=== PATIENT | female | born 1975 | race Caucasian/White ===

== ENCOUNTER 2019-12-07 08:59 | Emergency (ER) | payer OTHER ==
[2019-12-07] MEDS ORDERED: LIDOCAINE VISCOUS 2% SOLN 15 ML UDC ONE (10:07)
[2019-12-07] MEDS ORDERED: MAGNE/ALUM HYDROXD 30 ML UCUP ONE (10:07)
[2019-12-07 10:11] LABS: Urine Blood 2+ (NEG); Urine Glucose NEGATIVE (NEG); Urine Protein NEGATIVE (NEG); Urine pH 8.5 (5.0-7.0)
[2019-12-07 10:21] LABS: Absolute Lymphocytes (CBC) 0.9 K/uL (0.7-4.9); Basophils % 0.9 % (0-1.3); Hematocrit 41.4 % (36.0-45.0); Lymphocytes % 9.5 % (15.3-44.8); MPV 9.2 fL (7.6-11.3); RBC Red Blood Cell Count 4.82 M/uL (3.86-4.86)
[2019-12-07 10:23] LABS: Protime INR 0.99
--- NOTE | 2019-12-07 10:33 | RAD REPORT ---
EXAM DESCRIPTION: [place] Single View12/07/2019 10:26 am CLINICAL HISTORY: Chest pain COMPARISON: none FINDINGS: The lungs appear clear of acute infiltrate. The heart is normal size IMPRESSION: No acute abnormalities displayed
[2019-12-07 10:39] LABS: ALT/SGPT 21 U/L (12-78); AST/SGOT 15 U/L (15-37); Albumin 3.6 g/dL (3.4-5.0); Alkaline Phosphatase 97 U/L (45-117); BUN Blood Urea Nitrogen 11 mg/dL (7-18); Bicarbonate 28 mmol/L (21-32); Bilirubin Direct 0.2 mg/dL (0-0.2); Bilirubin Total 0.5 mg/dL (0.2-1.0); Glucose Level 94 mg/dL (74-106); Lipase 57 U/L (73-393); Magnesium 1.8 mg/dL (1.8-2.4); NT PRO-BNP 86 pg/mL (<125); Potassium 3.6 mmol/L (3.5-5.1); Protein, Total 7.3 g/dL (6.4-8.2); Sodium Level 136 mmol/L (136-145); Troponin (Emerg Dept Use Only) < 0.02 ng/mL (0.0-0.045)
--- NOTE | 2019-12-07 11:37 | ER ---
Nurse's Notes [facility] Name: Jessica Nathan Age: 44 yrs Sex: Female : 1975 Arrival Date: 12/07/2019 Time: 09:00 Bed 2 Private MD: Diagnosis: Cholelithiasis;Upper abdominal pain, unspecified Presentation: 12/06 09:09 Chief complaint: Patient states: epigastric pain that began this morning. Pt denies aa5 nausea/vomiting/diarrhea. Coronavirus screen: Client denies travel out of the [place] in the last 14 days. At this time, the client does not indicate any symptoms associated with coronavirus-19. Ebola Screen: Patient negative for fever greater than or equal to 101.5 degrees Fahrenheit, and additional compatible Ebola Virus Disease symptoms. Initial Sepsis Screen: Does the patient meet any 2 criteria? No. Patient's initial sepsis screen is negative. Does the patient have a suspected source of infection? No. Patient's initial sepsis screen is negative. Risk Assessment: Do you want to hurt yourself or someone else? Patient reports no desire to harm self or others. Onset of symptoms was November 2019. 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 - Social history:: Smoking status: Patient reports the use of cigarette tobacco products, denies chronic smoking, but will smoke occasionally. Screenin:16 Abuse screen: Denies threats or abuse. Nutritional screening: No deficits noted. tw2 Tuberculosis screening: No symptoms or risk factors identified. Fall Risk None identified. Assessment: 09:16 Reassessment: pt given urine specimen cup at this time and taken to the restroom. tw2 09:27 General: Appears in no apparent distress. uncomfortable, well groomed, Behavior is tw2 calm, cooperative, appropriate for age. 09:27 Pain: Complains of pain in epigastric area. Neuro: Level of Consciousness is awake, tw2 alert, obeys commands, Oriented to person, place, time, situation. Cardiovascular: Heart tones S1 S2 Capillary refill < 3 seconds Patient's skin is warm and dry. Respiratory: Airway is patent Respiratory effort is even, unlabored, Respiratory pattern is regular, symmetrical, Breath sounds are clear bilaterally. GI: Abdomen is flat, Bowel sounds present X 4 quads. Abd is soft X 4 quads Reports epigastric pain. : No signs and/or symptoms were reported regarding the genitourinary system. EENT: No signs and/or symptoms were reported regarding the EENT system. Derm: No signs and/or symptoms reported regarding the dermatologic system. Musculoskeletal: Range of motion: intact in all extremities. 10:10 Reassessment: xray at bedside at this time. tw2 11:33 Reassessment: No changes from previously documented assessment. Patient and/or family tw2 updated on plan of care and expected duration. Pain level reassessed. Patient is alert, oriented x 3, equal unlabored respirations, skin warm/dry/pink. provider notified, medicated as ordered Patient states symptoms have not improved. 11:39 Reassessment: provider at bedside at this time with results. tw2 11:55 Reassessment: Patient appears in no apparent distress at this time. Patient and/or tw2 family updated on plan of care and expected duration. Pain level reassessed. Patient is alert, oriented x 3, equal unlabored respirations, skin warm/dry/pink. Patient states feeling better. Patient states symptoms have improved. Vital Signs: 09:11 BP 164 / 91; Pulse 80; Resp 20 S; Temp 97.9(O); Pulse Ox 100% on R/A; Weight 77.11 kg aa5 (R); Height 5 ft. 5 in. (165.10 cm) (R); Pain 8/10; 10:12 BP 146 / 98; Pulse 77; Resp 17; Pulse Ox 100% on R/A; tw2 11:10 BP 163 / 99; Pulse 70; Resp 17; Pulse Ox 100% on R/A; tw2 11:25 Pain 8/10; tw2 11:50 BP 138 / 86; Pulse 89; Resp 16; Pulse Ox 100% on R/A; tw2 09:11 Body Mass Index 28.29 (77.11 kg, 165.10 cm) aa5 ED Course: 09:00 Patient arrived in ED. ag5 09:09 Triage completed. aa5 09:09 Arm band placed on. aa5 09:13 Bed in low position. Call light in reach. Pulse ox on. NIBP on. tw2 09:15 Justino Frost RN is Primary Nurse. jl7 09:16 Thee Mcconnell PA is PHCP. jr8 09:16 Endy Galan MD is Attending Physician. jr8 10:02 Inserted saline lock: 20 gauge in right antecubital area, using aseptic technique. tw2 Blood collected. 10:27 XRAY Chest (1 view) In Process Unspecified. EDMS 10:33 EKG done, by agronomy technician. reviewed by Thee CARLSON. at1 11:08 US Abdomen Limited In Process Unspecified. EDMS 11:33 Sukumar Callahan MD is Referral Physician. jr8 11:55 No provider procedures requiring assistance completed. IV discontinued, intact, tw2 bleeding controlled, No redness/swelling at site. Pressure dressing applied. Administered Medications: 10:00 Drug: GI Cocktail without - (Maalox Suspension 30 ml, Lidocaine Liquid 2 % 15 tw2 ml) Route: PO; 11:25 Follow up: Pain 8/10 Adult; Response: No adverse reaction; Pain is unchanged, physician tw2 notified 11:30 Drug: Zofran (Ondansetron) 4 mg Route: IVP; Site: right antecubital; tw2 11:55 Follow up: Response: No adverse reaction tw2 11:32 Drug: Demerol 25 mg {Note: RASS 0.} Route: IVP; Site: right antecubital; tw2 11:55 Follow up: Response: No adverse reaction; Pain is decreased; RASS: Alert and Calm (0) tw2 Outcome: 11:36 Discharge ordered by . jr8 11:55 Discharged to home ambulatory, with significant other. tw2 11:55 Condition: stable 11:55 Discharge instructions given to patient, significant other, Instructed on discharge instructions, follow up and referral plans. no drinking with medication, no driving heavy equipment, medication usage, Demonstrated understanding of instructions, follow-up care, medications, Prescriptions given X 2. 11:57 Patient left the ED. tw2 Signatures: Dispatcher [employer] EDAmberly Madsen, RN RN aa5 Thee Mcconnell PA PA jr8 Shireen Hidalgo, assistant professor of radiology EKG Tat1 Sarah Dawn RN RN tw2 Justino Frost RN RN jl7 Germaine Saavedra 5
--- NOTE | 2019-12-07 11:37 | EDPHYS ---
Physician Documentation [facility] Name: Jessica Nathan Age: 44 yrs Sex: Female : 1975 Arrival Date: 12/07/2019 Time: 09:00 Bed 2 Private MD: ED Physician Endy Galan HPI: 12/06 10:12 This 44 yrs old Female presents to ER via Ambulatory with complaints of Abdominal Pain. jr8 10:12 The patient presents with abdominal pain in the epigastric area, in the upper abdomen. jr8 Onset: The symptoms/episode began/occurred acutely, this morning. The symptoms do not radiate. Associated signs and symptoms: none. The symptoms are described as dull. Modifying factors: The symptoms are alleviated by nothing, the symptoms are aggravated by nothing. Severity of pain: At its worst the pain was moderate in the emergency department the pain is unchanged. The patient has not experienced similar symptoms in the past. The patient has not recently seen a physician. Patient stated that she on a very rare occasion will have reflux and can usually take something and it goes away. Stated that at about 1:30 AM this morning woke up with reflux sensation. Took Pepto-Bismol without relief. Waited a while and took milk of magnesia and also Prevacid. Stated that she waited another hour in a half and still without relief. [place] that the burning of esophagus migrated down to epigastric region and since then has staid there . 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 - Social history:: Smoking status: Patient reports the use of cigarette tobacco products, denies chronic smoking, but will smoke occasionally. ROS: 10:12 Eyes: Negative for injury, pain, redness, and discharge, ENT: Negative for injury, jr8 pain, and discharge, Neck: Negative for injury, pain, and swelling, Cardiovascular: Negative for chest pain, palpitations, and edema, Respiratory: Negative for shortness of breath, cough, wheezing, and pleuritic chest pain, Back: Negative for injury and pain, MS/Extremity: Negative for injury and deformity, Skin: Negative for injury, rash, and discoloration, Neuro: Negative for headache, weakness, numbness, tingling, and seizure. 10:12 Abdomen/GI: Positive for abdominal pain, Negative for nausea, vomiting, and diarrhea, abdominal cramps, abdominal distension, hematemesis, black/tarry stool, rectal pain, rectal bleeding, bowel incontinence, flatulence. Exam: 10:12 Eyes: Pupils equal round and reactive to light, extra-ocular motions intact. Lids and jr8 lashes normal. Conjunctiva and sclera are non-icteric and not injected. Cornea within normal limits. Periorbital areas with no swelling, redness, or edema. ENT: Nares patent. No nasal discharge, no septal abnormalities noted. Tympanic membranes are normal and external auditory canals are clear. Oropharynx with no redness, swelling, or masses, exudates, or evidence of obstruction, uvula midline. Mucous membranes moist. Neck: Trachea midline, no thyromegaly or masses palpated, and no cervical lymphadenopathy. Supple, full range of motion without nuchal rigidity, or vertebral point tenderness. No Meningismus. Cardiovascular: Regular rate and rhythm with a normal S1 and S2. No gallops, murmurs, or rubs. Normal PMI, no JVD. No pulse deficits. Respiratory: Lungs have equal breath sounds bilaterally, clear to auscultation and percussion. No rales, rhonchi or wheezes noted. No increased work of breathing, no retractions or nasal flaring. Back: No spinal tenderness. No costovertebral tenderness. Full range of motion. Skin: Warm, dry with normal turgor. Normal color with no rashes, no lesions, and no evidence of cellulitis. MS/ Extremity: Pulses equal, no cyanosis. Neurovascular intact. Full, normal range of motion. Neuro: Awake and alert, GCS 15, oriented to person, place, time, and situation. Cranial nerves II-XII grossly intact. Motor strength 5/5 in all extremities. Sensory grossly intact. Cerebellar exam normal. Normal gait. 10:12 Abdomen/GI: Inspection: abdomen appears normal, Bowel sounds: active, all quadrants, Palpation: soft, in all quadrants, mild abdominal tenderness, in the epigastric area and left upper quadrant, moderate abdominal tenderness, in the right upper quadrant, mass, is not appreciated, rebound tenderness, is not appreciated, voluntary guarding, is not appreciated, involuntary guarding, is not appreciated, no appreciated organomegaly, Indicators: McBurney's point is not tender, Curry's sign is negative, Rovsing's sign is negative, Liver: tenderness, is not appreciated. Vital Signs: 09:11 BP 164 / 91; Pulse 80; Resp 20 S; Temp 97.9(O); Pulse Ox 100% on R/A; Weight 77.11 kg aa5 (R); Height 5 ft. 5 in. (165.10 cm) (R); Pain 8/10; 10:12 BP 146 / 98; Pulse 77; Resp 17; Pulse Ox 100% on R/A; tw2 11:10 BP 163 / 99; Pulse 70; Resp 17; Pulse Ox 100% on R/A; tw2 11:25 Pain 8/10; tw2 11:50 BP 138 / 86; Pulse 89; Resp 16; Pulse Ox 100% on R/A; tw2 09:11 Body Mass Index 28.29 (77.11 kg, 165.10 cm) aa5 MDM: 09:16 Patient medically screened. abby 09:18 Patient medically screened. abby 11:32 Differential diagnosis: AAA, cholecystitis, Cholelithiasis, diverticulitis, gastritis, jr8 gastroesophageal reflux disease, myocardia ischemia or infarction, non-specific abd pain, pancreatitis, Peptic Ulcer Disease, Perf. Duodenal Ulcer, Perf. Gastric Ulcer, Peritonitis. Data reviewed: vital signs, nurses notes, lab test result(s), EKG, radiologic studies, plain films, ultrasound. Data interpreted: Pulse oximetry: on room air is 100 %. Interpretation: normal. Counseling: I had a detailed discussion with the patient and/or guardian regarding: the historical points, exam findings, and any diagnostic results supporting the discharge/admit diagnosis, lab results, radiology results, the need for outpatient follow up, a general surgeon, to return to the emergency department if symptoms worsen or persist or if there are any questions or concerns that arise at home. Response to treatment: the patient's symptoms have markedly improved after treatment. 10 09:47 Order name: Urine Dipstick--Ancillary (enter results); Complete Time: 10:16 bd 12/06 09:47 Order name: Urine --Ancillary (enter results); Complete Time: 10:16 bd 12/06 09:49 Order name: Basic Metabolic Panel; Complete Time: 10:45 12/06 09:49 Order name: CBC with Diff; Complete Time: 10:37 12/06 09:49 Order name: LFT's; Complete Time: 10:45 12/06 09:49 Order name: Magnesium; Complete Time: 10:45 12/06 09:49 Order name: NT PRO-BNP; Complete Time: 10:45 12/06 09:49 Order name: PT-INR; Complete Time: 10:37 12/06 09:49 Order name: Troponin (emerg Dept Use Only); Complete Time: 10:45 12/06 09:49 Order name: XRAY Chest (1 view); Complete Time: 10:37 12/06 09:49 Order name: Lipase; Complete Time: 10:45 12/06 10:37 Order name: US Abdomen Limited; Complete Time: 11:51 12/06 09:26 Order name: Urine Dipstick-Ancillary (obtain specimen); Complete Time: 09:26 tw12/06 09:26 Order name: Urine Test (obtain specimen); Complete Time: 09:26 tw2 12/06 09:49 Order name: EKG; Complete Time: 09:50 12/06 09:49 Order name: Cardiac monitoring; Complete Time: 10:09 12/06 09:49 Order name: EKG - Nurse/Tech; Complete Time: 11:24 12/06 09:49 Order name: IV Saline Lock; Complete Time: 10:12/06 09:49 Order name: Labs collected and sent; Complete Time: 10:12/06 09:49 Order name: O2 Per Protocol; Complete Time: 10:12/06 09:49 Order name: O2 Sat Monitoring; Complete Time: 10: Administered Medications: 10:00 Drug: GI Cocktail without - (Maalox Suspension 30 ml, Lidocaine Liquid 2 % 15 tw2 ml) Route: PO; 11:25 Follow up: Pain 8/10 Adult; Response: No adverse reaction; Pain is unchanged, physician tw2 notified 11:30 Drug: Zofran (Ondansetron) 4 mg Route: IVP; Site: right antecubital; tw2 11:55 Follow up: Response: No adverse reaction tw2 11:32 Drug: Demerol 25 mg {Note: RASS 0.} Route: IVP; Site: right antecubital; tw2 11:55 Follow up: Response: No adverse reaction; Pain is decreased; RASS: Alert and Calm (0) tw2 Disposition: 15:06 Co-signature as Attending Physician, Endy Galan MD I agree with the assessment and abby plan of care. Disposition: 12/07/19 11:36 Discharged to Home. Impression: Cholelithiasis, Upper abdominal pain, unspecified. - Condition is Stable. - Discharge Instructions: Abdominal Pain, Adult, Biliary Colic, Adult, Clear Liquid Diet, Adult, Cholelithiasis. - Prescriptions for Tylenol- Codeine #3 300-30 mg Oral Tablet - take 2 tablets by ORAL route every 6 hours As needed; 20 tablet. Zofran 4 mg Oral Tablet - take 1 tablet by ORAL route every 12 hours As needed; 20 tablet. - Medication Reconciliation Form, Thank You Letter, Antibiotic Education, Prescription Opioid Use, Work release form, Family Work Release form. - Follow up: Sukumar Callahan MD; When: 2 - 3 days; Reason: Recheck today's complaints, Continuance of care, Re-evaluation by your physician. - Problem is new. - Symptoms have improved. Signatures: Dispatcher [employer] Endy Regan MD MD cha Calderon, Audri, RN RN aa5 Thee Mcconnell PA PA jr8 Sarah Dawn, RN RN tw2 Corrections: (The following items were deleted from the chart) 11:57 11:36 12/07/2019 11:36 Discharged to Home. Impression: Cholelithiasis; Upper abdominal tw2 pain, unspecified. Condition is Stable. Forms are Medication Reconciliation Form, Thank You Letter, Antibiotic Education, Prescription Opioid Use. Follow up: Sukumar Callahan; When: 2 - 3 days; Reason: Recheck today's complaints, Continuance of care, Re-evaluation by your physician. Problem is new. Symptoms have improved. jr8
[2019-12-07] MEDS ORDERED: MEPERIDINE HCL 50 MG/ML ONE (11:39)
[2019-12-07] MEDS ORDERED: ONDANSETRON 4 MG/2 ML VIAL ONE (11:39)
--- NOTE | 2019-12-07 11:40 | RAD REPORT ---
EXAM DESCRIPTION: US - Abdomen Exam Limited - 12/07/2019 11:08 am CLINICAL HISTORY: Abdominal pain. COMPARISON: None. FINDINGS: Multiple gallstones. Gallbladder wall is not thickened The biliary tree is normal caliber. IMPRESSION: Cholelithiasis without evidence cholecystitis
[2019-12-07 12:08] VITALS: TEMP 97.9; O2SAT 100
[2019-12-07 12:25] VITALS: BP 138/86
== END 2019-12-07 11:57 | disposition home or self-care (01) ==
LOC: ER 08:59
DX: K80.20 Calculus of gallbladder without cholecystitis without obstruction (principal); F17.210 Nicotine dependence, cigarettes, uncomplicated; I10 Essential (primary) hypertension; Z88.6 Allergy status to analgesic agent
CPT/HCPCS: 93005; 85025; 80048; 36415; 83735; 81025; 85610; 80076; 81003; 84484; 83690; 83880; 71045; 76705; 96375; 96374; 99284; J2175; J2405

== ENCOUNTER 2019-12-21 07:54 | Day surgery (SDC) | payer OTHER ==
[2019-12-21 08:20] LABS: Specific Gravity 1.015 (1.005-1.030)
[2019-12-21 08:38] LABS: Albumin 3.3 g/dL (3.4-5.0); Bilirubin Direct 0.1 mg/dL (0-0.2); Bilirubin Total 0.4 mg/dL (0.2-1.0)
[2019-12-21] MEDS ORDERED: Ringers Lactate 1,000 ML IV ONE ×2 (08:40→10:30)
[2019-12-21] MEDS: CEFOXITIN/SWI 1gm 1 GM/10 ML SYR ONE ×3 (08:42→09:40)
[2019-12-21] MEDS ORDERED: FENTANYL CITR 100 MCG/2 ML ONE (09:41)
[2019-12-21] MEDS ORDERED: propofoL 200 MG/20 ML VIAL IV ONE (09:41)
[2019-12-21] MEDS ORDERED: MIDAZOLAM HCL 2 MG/2 ML INJ ONE (09:41)
[2019-12-21] MEDS ORDERED: LIDOCAINE 1% MPF 5 ML VIAL ONE (09:42)
[2019-12-21] MEDS ORDERED: ROCURONIUM 50 MG/5 ML VIAL IV ONE (09:42)
[2019-12-21] MEDS ORDERED: KETOROLAC 30 MG/ML INJ ONE (10:14)
[2019-12-21] MEDS ORDERED: dexAMETHasone 4 MG/ML VIAL ONE (10:15)
[2019-12-21] MEDS ORDERED: ONDANSETRON 4 MG/2 ML VIAL ONE (10:15)
--- NOTE | 2019-12-21 10:25 | P.BOP ---
Preoperative diagnosis: acute cholecystitis, symptomatic cholelithiasis Postoperative diagnosis: same plus umbilical hernia Primary procedure: 1. Laparoscopic cholecystectomy Secondary procedure: 2. open repair of umbilical hernia Deportation Examiner: Jenifer Hein) Estimated blood loss: <10cc Specimen: hernia sac, GB Findings: as above Anesthesia: General Complications: None Transferred to: Recovery Room Condition: Good
[2019-12-21] MEDS ORDERED: GLYCOPYRROLATE 0.2 MG/ML SYR ONE (10:33)
[2019-12-21] MEDS ORDERED: NEOSTIGMINE 1 MG/ML -5 ML ONE (10:34)
[2019-12-21] MEDS ORDERED: MORPHINE 10 MG/ML VIAL ONE (10:39)
--- NOTE | 2019-12-21 11:17 | OP ---
Date of Procedure: 12/21/2019 Surgeon: Sukumar Callahan MD Scallop Cutter: KIM Mark. Preoperative Diagnosis: Acute cholecystitis, symptomatic cholelithiasis. Postoperative Diagnosis: Acute cholecystitis, symptomatic cholelithiasis plus umbilical hernia. Procedure: Laparoscopic cholecystectomy and open repair of umbilical hernia. Estimated Blood Loss: Less than 10 mL. Anesthesia: General plus local. Indications: This is the case of a female, who comes to us with recurrent epigastric right upper jewell drant pain consistent with acute cholecystitis and symptomatic cholelithiasis. The benefits, alterna tives, and risks of laparoscopic, possible open cholecystectomy fully explained to the patient which include, but not limited to infection, bleeding, damage to adjacent structures, anesthesia complicati on, choledocholithiasis, bile leak, pancreatitis, GA, and even . She also understood this may n ot relieve any symptoms. She might need more than one surgical intervention. She understood and sig liseth the consent. Procedure In Detail: The patient was brought to the operating room and placed in supine position. A nesthesia was done without complication. Abdominal area was prepped and draped in a sterile fashion. Marcaine 0.5% was injected for local anesthetic followed by sharp incision of the skin in the infra umbilical region. Incision was carried down to fascia. Immediately, we noticed the patient to have umbilical hernia with incarcerated omentum on it, so carefully we opened the hernia sac, reduced the omentum after releasing some adhesions to make sure there was no bleeding. We removed the hernia sac with content and then extended the incision in the umbilical region to accommodate the Ana trocar after Vicryl #1 carefully placed. Ana trocar was carefully introduced. No bleeding was obtained . I placed 3 more trocars, 5 mm each one of them on the right upper quadrant under direct visualizat ion. At that moment, I proceeded to put a grasper in the fundus of the gallbladder and another grasp er in the infundibulum retracting the gallbladder in the inferolateral fashion exposing the triangle of Calot obtaining critical view. Cystic duct and cystic artery were clearly isolated free circumfer entially and a connection between those and the gallbladder were clearly identified. I proceeded to ligate those by using at least 3 clips proximal, 1 clip distal, and ligation in the middle. Same was done with the cystic artery. No bile leak. No bleeding. The gallbladder was removed from liver us ing Bovie cauterizer and removed from abdominal cavity using EndoCatch through the umbilical incision . The area was inspected. Once again, no bile leak. No bleeding. At that moment, I proceeded to r emove the trocars under direct vision, deflated pneumoperitoneum, closed the fascia and umbilical her nanda with #1 Vicryl. Irrigated subcutaneous tissue, closed with 3-0 chromic, and skin in subcuticular fashion with 3-0 chromic and Steri-Strips on top. Sponge count and instrument counts correct. The patient tolerated the procedure well. The patient was sent to recovery in stable condition. BJ/JARAD Voice ID: [id number] Report ID: [id number]
--- NOTE | 2019-12-21 11:23 | DS ---
Diagnoses: Acute cholecystitis, symptomatic cholelithiasis, umbilical hernia. Procedure: Laparoscopic cholecystectomy and open umbilical hernia repair. Disposition: Home. Activity: As tolerated, no heavy lifting. Plan: Follow up in my office in 1 week. Call for appointment at [phone]. Keep area dry for 48 ruthie rs, then may shower. Keep Steri-Strip intact. Medications: Include Tylenol No.3 q.4 hours p.r.n., pain, Bactrim DS p.o. b.i.d., and Zofran 4 q.6 p .r.n. nausea. BJ/JARAD Voice ID: [id number] Report ID: [id number]
[2019-12-21 12:29] VITALS: TEMP 97.4; O2SAT 99
[2019-12-21] MEDS ORDERED: CODEINE 30MG/APAP 300MG TAB ONE (12:29)
[2019-12-21 12:56] VITALS: BP 127/74
== END 2019-12-21 13:05 | disposition home or self-care (01) ==
LOC: OR 07:54
PROVIDERS: ATTEND Surgery
PROC: 0WQF0ZZ Repair Abdominal Wall, Open Approach (ICD-10-PCS; 2019-12-21)
PROC: 0FT44ZZ Resection of Gallbladder, Percutaneous Endoscopic Approach (ICD-10-PCS; principal; 2019-12-21 10:15)
DX: R10.11 Right upper quadrant pain (principal); I10 Essential (primary) hypertension; F41.9 Anxiety disorder, unspecified; M19.90 Unspecified osteoarthritis, unspecified site; K80.10 Calculus of gallbladder with chronic cholecystitis without obstruction; Z20.828 Contact with and (suspected) exposure to other viral communicable diseases
CPT/HCPCS: 36415; 82150; 81025; 80076; 88302; 88304; 83690; 47562; 49585; U0002; J2704; J1100; J2250; J3010; J2710; J7120 ×2; J2405